=== PATIENT | female | born 1990 | race African-American/Black ===

== ENCOUNTER 2020-07-06 09:48 | Outpatient (REF) | payer OTHER, SELFPAY | END 2020-07-06 09:49 | disposition home or self-care (01) | LOC: HO.LAB 09:48 | PROVIDERS: Visit Provider Internal Medicine | DX: Z20.822 Contact with and (suspected) exposure to COVID-19 (principal) | CPT/HCPCS: 36415; C9803; U0003 ==

== ENCOUNTER 2020-07-06 10:03 | Emergency (ER) | payer OTHER, SELFPAY ==
[2020-07-06 10:21] VITALS: BP 119/56; PULSE 80; RESP 16; TEMP 37.2; O2SAT 99; BMI 22.1
--- NOTE | 2020-07-06 10:38 | PC.NURSE ---
TRIAGED AT BEDSIDE. AWAITING PROVIDER. HERE WITH COWORKER WITH SAME C/O.
--- NOTE | 2020-07-06 10:46 | PC.NURSE ---
SEEN BY PROVIDER AT THIS TIME
--- NOTE | 2020-07-06 17:43 | ED.GENADULT ---
HPI - General Adult General Chief complaint: Back Pain/Injury <SAMREEN Taylor - Last Filed: 07/06/20 17:47> Stated complaint: back pain <SAMREEN Taylor - Last Filed: 07/06/20 17:47> Time Seen by Provider: 07/06/20 11:05 <SAMREEN Taylor - Last Filed: 07/06/20 17:47> History of Present Illness HPI narrative: Patient has 2 complaints, 1st complaint is back pain worse with movement over the past 7 days, with no injury that she can recall, no numbness no weakness no paresthesias no changes to bowel or bladder Second complaint is for 3 days she has had body aches and fatigue with a runny nose, no cough no shortness of breath no fever no chills <SAMREEN Taylor Last Filed: 07/06/20 17:47> Related Data Home medications: Previous Rx's Medication Instructions Recorded cyclobenzaprine 5 mg PO TID PRN #14 tab 07/06/20 ibuprofen 600 mg PO Q6H PRN #20 tab 07/06/20 <SAMREEN Taylor - Last Filed: 07/06/20 17:47> Allergies/adverse reactions: Allergies Allergy/AdvReac Type Severity Reaction Status Date / Time No Known Allergies Allergy Verified 07/06/20 10:25 <SAMREEN Taylor - Last Filed: 07/06/20 17:47> Review of Systems Review of Systems: Positives are positional back pain, fatigue, body aches, runny nose Negatives are no fever no chills no dizziness no weakness no headache no neck pain no numbness or tingling, there is no chest pain no shortness of breath, no abdominal pain no nausea or vomiting, no leg swelling or calf pain, no changes to bowel or bladder, no dysuria no incontinence <SAMREEN Taylor Last Filed: 07/06/20 17:47> [facility] Past Medical History Source: nursing notes reviewed <SAMREEN Taylor Last Filed: 07/06/20 17:47> Social History Social History: Social History Advance Directives: No Advance Directives Information Provided: No <SAMREEN Taylor Last Filed: 07/06/20 17:47> Physical Exam Vital Signs: Vital Signs: Last Vital Signs Temp 99.0 F 07/06/20 10:21 Pulse 80 07/06/20 10:21 Resp 16 07/06/20 10:21 BP 119/56 L 07/06/20 10:21 Pulse Ox 99 07/06/20 10:21 Body Mass Index 22.1 <SAMREEN Taylor - Last Filed: 07/06/20 17:47> Vital Signs: Last Vital Signs Temp 99.0 F 07/06/20 10:21 Pulse 80 07/06/20 10:21 Resp 16 07/06/20 10:21 BP 119/56 L 07/06/20 10:21 Pulse Ox 99 07/06/20 10:21 Body Mass Index 22.1 <Alexander Mantilla MD - Last Filed: 07/12/20 10:48> General appearance is no distress The head is normocephalic atraumatic The sinuses are not tender The pharynx is well hydrated and clear The neck is supple without lymphadenopathy Chest is clear to auscultation bilaterally with full symmetric equal breath sounds The heart rate and rhythm regular no murmur The back had bilateral lower lumbar paraspinal tenderness, no bony tenderness, pain is easily reproduced with movement, there is no CVA tenderness, there are no rashes, no redness, no wounds to the back, skin was no Skin no rashes Neuro was motor 5 5 times for and symmetrical Sensation is intact and symmetrical Gait was normal patient should could walk on toes and walk on heels <SAMREEN Taylor - Last Filed: 07/06/20 17:47> Course Course Course Narrative: Patient was diagnosed with musculoskeletal back pain for a week and the body aches and fatigue which began 2 or 3 days ago could be COVID and she was tested for COVID and she was discharged <SAMREEN Taylor - Last Filed: 07/06/20 17:47> I have reviewed the chart <Alexander Mantilla MD - Last Filed: 07/12/20 10:48> Discharge Plan Discharge Clinical Impression: Back pain, Acute viral syndrome <SAMREEN Taylor - Last Filed: 07/06/20 17:47> Patient Disposition: Home, Self-Care <SAMREEN Taylor - Last Filed: 07/06/20 17:47> Additional Instructions: You had 2 problems First is back pain that has been going on a week worse with movement which is probably from irritation of muscles and soft tissues in your back The fatigue and body aches that you had for the last couple of days could be COVID so wear a mask and maintained distance from others We will call you within 2-3 days with COVID test results If you continue to have symptoms of fatigue and body aches a negative test is not enough as negative test often misses COVID so to return to work you will need both a negative test and feeling better from the symptoms of body aches and fatigue Follow with primary doctor for the back pain if it does not go away Return to ER any time any worse condition or any concerns <SAMREEN Taylor - Last Filed: 07/06/20 17:47> Prescriptions: New cyclobenzaprine 5 mg tablet 5 mg PO TID PRN (Reason: muscle spasm) Qty: 14 RF: 0 ibuprofen 600 mg tablet 600 mg PO Q6H PRN (Reason: pain) Qty: 20 RF: 0 <SAMREEN Taylor - Last Filed: 07/06/20 17:47> Stand Alone Forms: Work/School Release <SAMREEN Taylor - Last Filed: 07/06/20 17:47> Interventions: ED Discharge Assessment Last Done: 07/06/20 11:19 <SAMREEN Taylor - Last Filed: 07/06/20 17:47> Discharge Date/Time: 07/06/20 11:20 <SAMREEN Taylor - Last Filed: 07/06/20 17:47>
== END 2020-07-06 11:20 | disposition home or self-care (01) ==
PROVIDERS: Emergency Provider Emergency Medicine
DX: M54.42 Lumbago with sciatica, left side (principal); M54.41 Lumbago with sciatica, right side; B34.9 Viral infection, unspecified; Z79.899 Other long term (current) drug therapy
CPT/HCPCS: 99283

== ENCOUNTER 2020-07-21 11:20 | Outpatient (REF) | payer OTHER, SELFPAY | END 2020-07-21 11:21 | disposition home or self-care (01) | LOC: HO.LAB 11:20 | PROVIDERS: Visit Provider Internal Medicine | DX: Z20.822 Contact with and (suspected) exposure to COVID-19 (principal) | CPT/HCPCS: 36415; C9803; U0003; U0005 ==

== ENCOUNTER 2021-04-24 09:15 | Outpatient (REF) | payer OTHER, SELFPAY ==
[2021-04-24 15:23] LABS: CT PCR NOT DETECTED (Not Detect.); NG PCR NOT DETECTED (Not Detect.)
[2021-04-27 23:20] LABS: HPV 16 RNA NOT DETECTED (NOT DETECTED); HPV mRNA E6/E7 rflx Detected (Not Detected)
== END 2021-04-24 09:16 | disposition home or self-care (01) ==
LOC: HO.LAB 09:15
PROVIDERS: PCP Nurse Practitioner Family; Visit Provider Advanced Practice Midwife
DX: Z01.419 Encounter for gynecological examination (general) (routine) without abnormal findings (principal); Z11.51 Encounter for screening for human papillomavirus (HPV); Z11.3 Encounter for screening for infections with a predominantly sexual mode of transmission; Z20.2 Contact with and (suspected) exposure to infections with a predominantly sexual mode of transmission
CPT/HCPCS: 87491; 87591; 87624; 87625; 88142